=== PATIENT | female | born 1965 | race Caucasian/White ===

== ENCOUNTER → 2020-03-03 | Outpatient (CLI) | payer OTHER ==
[~2020-03-03] MED LIST: BACL20TA PO; CYCL5TAB PO; DIPH-121 PO; DIPH25TA64 PO; HYDR-2765 PO; METO-239 PO; NAPR-695 PO; OMEP20CA16 PO; VALA500T5 PO; VENTOLIN HFA18 GM INH
== END | disposition home or self-care (01) ==
LOC: LAB 12:45
PROVIDERS: ATTEND Surgery
DX: Z01.812 Encounter for preprocedural laboratory examination (principal); Z20.828 Contact with and (suspected) exposure to other viral communicable diseases; S31.809A Unspecified open wound of unspecified buttock, initial encounter; X58.XXXA Exposure to other specified factors, initial encounter; Y93.89 Activity, other specified; Y92.89 Other specified places as the place of occurrence of the external cause; Y99.8 Other external cause status
CPT/HCPCS: U0003-CS

== ENCOUNTER 2020-03-07 09:26 | Day surgery (SDC) | payer OTHER ==
[~2020-03-07] VITALS: Ht 175.3 cm; Wt 108.5 kg
[~2020-03-07 09:26] MED LIST changes: +ACETAMINOPHEN 500 MG TABLET PO PRN; +BUPIVACAINE-EPI 0.5%-1:200000 MPF 30 ML VIAL. ONE; +HYDROmorphone 2 MG/ML VIAL IV PRN; +IV RINGERS,LACTATED 1000ML 1,000 ML IV SCH; +MORPHINE SULFATE 2 MG/ML VIAL. IV PRN; +ONDANSETRON PF 4 MG/2 ML VIAL. IV PRN; +PROCHLORPERAZINE 10 MG/2 ML VIAL. IV PRN; +fentaNYL PF VIAL 100 MCG/2 ML VIAL IV PRN
[2020-03-07] MEDS ORDERED: PROPOFOL 10 MG/ML (20ML) VIAL. IV ONE (10:42)
[2020-03-07] MEDS ORDERED: ONDANSETRON PF 4 MG/2 ML VIAL. ONE (10:42)
[2020-03-07] MEDS ORDERED: DEXAMETHASONE SOD PHOS 4 MG/ML VIAL ONE (10:42)
[2020-03-07] MEDS ORDERED: LIDOCAINE 2% PF 5 ML VIAL. ONE (10:42)
[2020-03-07] MEDS ORDERED: MIDAZOLAM HCL/PF 2 MG/2 ML VIAL. ONE (11:07)
[2020-03-07] MEDS ORDERED: fentaNYL PF VIAL 100 MCG/2 ML VIAL ONE ×2 (11:08→12:31)
[2020-03-07] MEDS ORDERED: SUCCINYLCHOLINE 200 MG/10 ML VIAL. ONE (11:21)
[2020-03-07] MEDS ORDERED: ROCURONIUM 50 MG/5 ML VIAL. ONE (11:22)
[2020-03-07] MEDS ORDERED: NEOSTIGMINE METHYLSULFATE 5 MG/5 ML SYRINGE. ONE (11:50)
[2020-03-07] MEDS ORDERED: GLYCOPYRROLATE 1 MG/5 ML VIAL. ONE (11:50)
[2020-03-07] MEDS ORDERED: SEVOFLURANE 31 TO 60 MINUTES. IH ONE (12:00)
--- NOTE | 2020-03-07 12:10 | PDOC4 ---
Operative Note Operative Note Date: 03/07/2020 at 1208 Preoperative diagnosis: Right buttock wound Postoperative diagnosis: Same Procedure: Excision of right buttock wound Surgeon: Omega Specimen: Right buttock mass Dictation: Patient is a 54-year-old female whose had a chronically draining wound right buttocks. Procedure of excision of wound was explained to the patient detail risk-benefit were also discussed including bleeding infection alternatives this procedure also discussed with patient who seemed to understand and gave verbal and written consent to have procedure performed. Patient was taken to the operating room placed in supine position general anesthesia was initiated once patient was sleeping in bed she was then positioned in a prone positioning her right buttock was prepped and draped usual sterile fashion was Betadine scrub and solution. An area around the lesion was injected with quarter percent Marcaine with epinephrine elliptical incision was made with 15 blade scalpel is carried down through the subcutaneous tissues electrocautery to provide hemostasis. Wound was then closed in 2 layers the deep layer running 3- 0 Vicryl and the skin was reapproximated for subcuticular Monocryl Mastisol Steri-Strips and island dressings were applied. Patient was repositioned in supine positioning awakened and extubated operating room taken to recovery in stable condition all sponge instrument needle counts listed as correct estimated blood loss 5 mL FRANK MICHAEL MD Mar 07, 2020 12:10
--- NOTE | 2020-03-07 12:13 | DISCH ---
DISCHARGE INSTRUCTIONS Condition on Discharge Condition on Discharge: Stable Activity After Discharge Activity Instructions for Disc: Activity as tolerated Diet after Discharge Diet after Discharge: Regular Wound Incision Care Other wound/incision instructi: May shower in 24 hours Contacting the after DC Call your doctor for: If your condition worsens Follow-Up Follow up with: Dr. Michael in 2 weeks FRANK MICHAEL MD Mar 07, 2020 12:13
[2020-03-07] MEDS: fentaNYL PF VIAL 100 MCG/2 ML VIAL IV PRN ×2 (12:33→12:52)
[2020-03-07] MEDS ORDERED: HYDR-3164 PO (12:47)
[2020-03-07] MEDS ORDERED: HYDROcodone/APAP 5/325MG 1 TAB TABLET PO ONE (13:00)
[2020-03-07 13:05] VITALS: BP 120/65
--- NOTE | 2020-03-08 15:08 | PATHOLOGY ---
[facility] Accession Number: [id number] . 01 Material submitted: . buttock - RIGHT BUTTOCK LESION. Modifiers: right . 01 Clinical history: . BUTTOCK WOUND . 02 Diagnosis: Skin and subcutaneous tissue, right buttock lesion excision: - Ruptured follicular cyst showing acute and chronic inflammation with focal foreign body giant cell reaction, and with surrounding fibrosis. (JPM:[facility] 03/08/2020) [facility] 03/08/2020 1439 Local . 02 Comment: There is no evidence of malignancy. (JPM:[facility] 03/08/2020) . 02 Electronically signed: . Robert Martinez MD, Pathologist NPI- [id number] . 01 Gross description: . The specimen is received in formalin, labeled "Gardenia Fernandez, R buttock lesion". Received is an ellipse of pale archer, grossly unremarkable skin with attached underlying fibroadipose tissue measuring 4.5 x 1.7 x 1.8 cm in greatest dimensions. There is a possible linear furrow identified measuring 2.2 cm in length. The surgical margin is inked. Sectioning reveals yellow-archer to pale pink cut surfaces. The specimen is submitted representatively in cassettes A1 and A2. ([facility]; 03/07/2020) QAC/QAC 03/07/2020 1557 Local . 02 Pathologist provided ICD-10: L72.9, L08.9, L90.5 . 02 CPT . 872134 Specimen Comment: A courtesy copy of this report has been sent to [phone], [phone] Specimen Comment: [id number] Specimen Comment: Report sent to / DR GATICA Performed at: [address], [place], [place] [id number] MD Humphrey Fay MD Phone: [phone] Performed at: [address] [id number] MD Robert Martinez MD Phone: [phone]
== END 2020-03-07 13:26 | disposition home or self-care (01) ==
LOC: SURG 09:26
PROVIDERS: ATTEND Surgery
DX: S31.819A Unspecified open wound of right buttock, initial encounter (principal); Z88.0 Allergy status to penicillin; Z79.899 Other long term (current) drug therapy; X58.XXXA Exposure to other specified factors, initial encounter; Y93.89 Activity, other specified; Y92.89 Other specified places as the place of occurrence of the external cause; Y99.8 Other external cause status
CPT/HCPCS: 11406; 12032; 88304; A7015; J0330; J1100; J1956; J2250; J2405; J2704; J2710; J3010; J3490; J7030